=== PATIENT | male | born 1980 | race Caucasian/White ===

== ENCOUNTER 2017-11-16 15:39 | Emergency (ER) | payer BC ==
[2017-11-16] MEDS ORDERED: Lactated Ringers 1,000 ML IV ONE (16:22)
[2017-11-16] MEDS ORDERED: Prochlorperazine 10 MG/2 ML SDV IVPUSH ONE (16:23)
[2017-11-16] MEDS ORDERED: diphenhydrAMINE 50 MG/ML SDV IVPUSH ONE (16:23)
[2017-11-16] MEDS ORDERED: Ketorolac 30 MG/ML SDV IVPUSH ONE (16:23)
--- NOTE | 2017-11-16 16:29 | EDM.PDOC ---
ED HPI GENERAL MEDICAL PROBLEM - General Chief Complaint: General Stated Complaint: WEAKNESS Time Seen by Provider: 11/16/17 16:15 Source of Information: Reports: Patient, RN History Limitations: Reports: Other (no old records) - History of Present Illness INITIAL COMMENTS - FREE TEXT/NARRATIVE: 37 yo male was sitting at a desk at his work today and had onset of CAO, neck stiffness, and tingling down both arms. [place] like he might suddenly fall asleep. He says he was feeling fine before that. He ate lunch today and thinks he slept OK last night. Has had CAO's with neck stiffness and tingling down his arms in the past, but this was more abrupt and worse. His past medical history is remarkable for a parathyroid issue for which he is scheduled to travel to [place] for surgery. Says he if followed by a clinical training coordinator for this problem. Onset: Today Onset Date: 11/16/17 Onset Time: 14:30 Duration: Minutes: Location: Reports: Head, Neck, Chest, Upper Extremity, Left, Upper Extremity, Right Quality: Reports: Other (tingling in arms. Neck stiffness. 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: Other (see below) (none) - Related Data Allergies Allergy/AdvReac Type Severity Reaction Status Date / Time No Known Allergies Allergy Verified 11/16/17 16:02 Past Medical History Cardiovascular History: Reports: Other (See Below) Other Cardiovascular History: pericarditis 2014 Neurological History: Reports: Other (See Below) Other Neuro History: numbness in arms in past Endocrine/Metabolic History: Reports: Other (See Below) Other Endocrine/Metabolic History: planned parathyridectomy - Infectious Disease History Infectious Disease History: Reports: Chicken Pox Social & Family History - Tobacco Use Smoking Status *Q: Never Smoker - Caffeine Use Caffeine Use: Reports: Energy Drinks - Recreational Drug Use Recreational Drug Use: No ED ROS GENERAL - Review of Systems Review Of Systems: See Below Constitutional: Reports: No Symptoms HEENT: Reports: No Symptoms Respiratory: Reports: No Symptoms Cardiovascular: Reports: Chest Pain (low, left chest-now gone) Endocrine: Reports: No Symptoms GI/Abdominal: Reports: No Symptoms : Reports: No Symptoms Musculoskeletal: Reports: Neck Pain (stiffness) Skin: Reports: No Symptoms Neurological: Reports: Headache (mild, occipital), Tingling (both arms) Psychiatric: Reports: No Symptoms ED EXAM, GENERAL - Physical Exam Exam: See Below Exam Limited By: No Limitations General Appearance: Alert, WD/WN, No Apparent Distress Eye Exam: Bilateral Eye: EOMI, Normal Inspection, PERRL Ears: Normal External Exam, Normal Canal, Hearing Grossly Normal Ear Exam: Bilateral Ear: Auricle Normal, Canal Normal Nose: Normal Inspection, Normal Mucosa, No Blood Throat/Mouth: Normal Inspection, Normal Lips, Normal Oropharynx, Normal Voice, No Airway Compromise Head: Atraumatic, Normocephalic Neck: Normal Inspection, Supple Respiratory/Chest: No Respiratory Distress, Lungs Clear, Normal Breath Sounds, No Accessory Muscle Use Cardiovascular: Regular Rate, Rhythm, No Edema GI/Abdominal: Normal Bowel Sounds, Soft, Non-Tender, No Distention Back Exam: Normal Inspection. No: CVA Tenderness (R), CVA Tenderness (L) Extremities: Normal Inspection, Normal Range of Motion, Non-Tender Neurological: Alert, Oriented, CN II-XII Intact, Normal Cognition, No Motor/ Sensory Deficits Psychiatric: Normal Affect, Normal Mood Skin Exam: Warm, Dry, Intact, Normal Color, No Rash Lymphatic: No Adenopathy Course - Vital Signs Text/Narrative:: partial relief with tx. Last Recorded V/S: Last Vital Signs Temp 36.2 C 11/16/17 17:13 Pulse 91 11/16/17 17:13 Resp 15 11/16/17 17:13 BP 123/74 11/16/17 17:13 Pulse Ox 100 11/16/17 17:13 - Orders/Labs/Meds Labs: Laboratory Tests 11/16/17 11/16/17 11/16/17 Range/Units 16:28 16:28 16:28 Sodium 139 L (140-148) mmol/L Potassium 3.8 (3.6-5.2) mmol/L Chloride 103 (100-108) mmol/L Carbon Dioxide 29 (21-32) mmol/L Anion Gap 10.8 (5.0-14.0) mmol/L BUN 12 (7-18) mg/dL Creatinine 1.4 H (0.8-1.3) mg/dL Est Cr Clr Drug Dosing 83.18 mL/min Estimated GFR (MDRD) 57 L (>60) Glucose 96 (74-106) mg/dL Calcium 9.1 (8.5-10.1) mg/dL Total Bilirubin 0.5 (0.2-1.0) mg/dL AST 23 (15-37) U/L ALT 53 (12-78) U/L Alkaline Phosphatase 82 (46-116) U/L Troponin I < 0.017 (0.000-0.056) ng/mL Total Protein 7.5 (6.4-8.2) g/dL Albumin 4.1 (3.4-5.0) g/dL Globulin 3.4 (2.3-3.5) g/dL Albumin/Globulin Ratio 1.2 (1.2-2.2) TSH, Ultra Sensitive 1.990 (0.358-3.740) uIU/mL Meds: Medications Discontinued Medications Generic Name Dose Route Start Last Admin Trade Name Chanel PRN Reason Stop Dose Admin Diphenhydramine HCl 25 mg 11/16/17 16:23 11/16/17 16:46 Benadryl IVPUSH 11/16/17 16:24 25 mg ONETIME ONE Administration Lactated Ringer's 1,000 mls @ 1,000 mls/hr 11/16/17 16:22 11/16/17 16:49 Ringers, Lactated IV 11/16/17 17:21 1,000 mls/hr BOLUS ONE Administration Ketorolac Tromethamine 30 mg 11/16/17 16:23 11/16/17 16:47 Toradol IVPUSH 11/16/17 16:24 30 mg ONETIME ONE Administration Prochlorperazine Edisylate 10 mg 11/16/17 16:23 11/16/17 16:48 Compazine IVPUSH 11/16/17 16:24 10 mg ONETIME ONE Administration Departure - Departure Time of Disposition: 18:00 Disposition: Home, Self-Care 01 Condition: Fair Clinical Impression: Cervical radiculopathy due to degenerative joint disease of spine - Discharge Information Referrals: PCP,None [Primary Care Provider] - Forms: ED Department Discharge
== END 2017-11-16 18:36 | disposition home or self-care (01) ==
LOC: JP.ED 15:39
DX: M47.22 Other spondylosis with radiculopathy, cervical region (principal)
CPT/HCPCS: 36415; 80053; 84443; 84484; 96361; 96374; 96375; 99284; J0780; J1200; J1885; J7120

== ENCOUNTER 2017-12-07 07:58 | Day surgery (SDC) | payer BC ==
[2017-12-07] MEDS ORDERED: Lactated Ringers 1,000 ML IV SCH (08:00)
[2017-12-07] MEDS ORDERED: Midazolam 1 MG/ML 2 ML SDV ONE (09:00)
[2017-12-07] MEDS ORDERED: fentaNYL 100 MCG/2 ML SDV ONE (09:00)
[2017-12-07] MEDS ORDERED: Propofol 200 MG/20 ML SDV ONE ×2 (09:00→09:19)
--- NOTE | 2017-12-07 11:45 | OR ---
DATE OF PROCEDURE: 12/07/2017 PREOPERATIVE DIAGNOSES: 1. Dysphagia. 2. Bloating. 3. Blood in stool. POSTOPERATIVE DIAGNOSES: 1. Dysphagia. 2. Bloating. 3. Blood in stool. 4. Antral ulcers and gastritis. 5. Unremarkable colonoscopy. PROCEDURES: 1. Esophagogastroduodenoscopy with antral biopsies for CLOtest and for pathology to look for Helicobacter pylori. 2. Colonoscopy to the cecum. SURGEON: Yaya Alex MD. ANESTHESIA: IV anesthesia with monitored anesthesia care. INDICATION: This 37-year-old white male is referred for upper and lower endoscopy because of dysphagia, bloating, and blood in stool. I counseled him for the procedures including risks and alternatives, and he gave his informed consent to proceed. DESCRIPTION OF PROCEDURE: The patient was placed in the left lateral decubitus position. IV anesthesia was administered by the Anesthesia Service. Time-out was held. The flexible video Olympus upper endoscope was passed through his mouth, down the esophagus, and into his stomach. The scope was easily passed through the pylorus, into the duodenum reaching its third portion. The scope was then slowly withdrawn examining the mucosa throughout. The duodenal mucosa appeared unremarkable. The scope was brought up through the pylorus. There was some fairly intense punctate erythema about the antrum with a small antral ulcer seen. The scope was retroflexed. The proximal stomach appeared unremarkable. The scope was straightened. We obtained antral biopsies for CLOtest and for pathology to look for Helicobacter pylori. The scope was then brought up through the GE junction, which appeared unremarkable and through the unremarkable appearing esophagus and was removed. Next, a rectal exam was performed which was unremarkable. The flexible video Olympus colonoscope was introduced through his anus, up his rectum, out his colon all the way to the cecum. Once the cecum was reached, the scope was slowly withdrawn examining the mucosa throughout. No mucosal abnormalities were noted. The prep was good. The scope was retroflexed in the rectum with the distal rectum appearing unremarkable. The scope was straightened and removed. He tolerated the procedure well. Yaya Alex MD /[id number]
== END 2017-12-07 11:00 | disposition home or self-care (01) ==
LOC: JP.SDS 07:58
PROVIDERS: ATTEND Surgery
DX: K92.1 Melena (principal); K29.70 Gastritis, unspecified, without bleeding; K25.9 Gastric ulcer, unspecified as acute or chronic, without hemorrhage or perforation; R13.10 Dysphagia, unspecified
CPT/HCPCS: 43239; 45378; 87081; J2250; J2704; J3010; J7120

== ENCOUNTER 2018-06-10 05:39 | Day surgery (SDC) | payer SELFPAY ==
[~2018-06-10 05:39] MED LIST: Acetaminophen 500 MG Tab PO ONE; Celecoxib 200 MG Cap PO ONE
[2018-06-10] MEDS: Dextrose 5%-Lactated Ringers 1,000 ML IV SCH ×3 (06:34→20:39)
[2018-06-10] MEDS ORDERED: Bupivacaine 0.5%/EPINEPHrine 1:200,000 50 ML MDV ONE (06:47)
[2018-06-10] MEDS ORDERED: Rocuronium 50 MG/5 ML Vial ONE (07:11)
[2018-06-10] MEDS ORDERED: Glycopyrrolate 0.2 MG/ML 5 ML MDV ONE (07:11)
[2018-06-10] MEDS ORDERED: Neostigmine Methylsulfate 1 MG/ML 5 ML Syringe ONE (07:11)
[2018-06-10] MEDS ORDERED: Ondansetron 4 MG/2 ML SDV ONE (07:11)
[2018-06-10] MEDS ORDERED: Propofol 200 MG/20 ML SDV ONE (07:11)
[2018-06-10] MEDS ORDERED: Dexamethasone 4 MG/ML SDV ONE (07:11)
[2018-06-10] MEDS ORDERED: fentaNYL 250 MCG/5 ML SDV ONE ×2 (07:13→07:41)
[2018-06-10] MEDS ORDERED: Ketamine 500 MG/5 ML MDV IV SCH (07:30)
[2018-06-10] MEDS ORDERED: Ropivacaine 46 ML, Dexamethasone 8 MG, EPINEPHrine 0.4 MG, Sodium Chloride 0.9% 31.6 ML NERVRT SCH ×4 (07:30)
[2018-06-10] MEDS ORDERED: HYDROmorphone/Normal Saline 15 MG/30 ML PCA IV PRN (07:39)
[2018-06-10] MEDS ORDERED: Naloxone 0.4 MG/ML SDV IV PRN (07:41)
[2018-06-10] MEDS: cefOXitin 2 GM in Sodium Chloride 0.9% 50 ML IV ONE ×2 (07:44→09:50)
[2018-06-10] MEDS ORDERED: hydrOXYzine HCl 100 MG/2 ML SDV IM PRN (09:29)
[2018-06-10] MEDS ORDERED: hydrOXYzine HCl 25 MG Tab PO PRN (09:30)
[2018-06-10] MEDS ORDERED: Cyclobenzaprine 10 MG Tab PO PRN (09:30)
[2018-06-10] MEDS: HYDROmorphone 1 MG/ML Syringe IV PRN ×4 (09:51→22:45)
[2018-06-10] MEDS: Acetaminophen/HYDROcodone 325-5 MG Tab PO PRN (12:09)
[2018-06-10] MEDS: cefOXitin 2 GM in Sodium Chloride 0.9% 50 ML IV SCH ×2 (14:26→20:40)
[2018-06-10] MEDS ORDERED: Pantoprazole 40 MG Vial IV SCH (16:00)
[2018-06-10] MEDS: Ondansetron 4 MG/2 ML SDV IVPUSH PRN ×2 (17:33→22:46)
[2018-06-11] MEDS: Acetaminophen/HYDROcodone 325-5 MG Tab PO PRN (08:24)
[2018-06-11] MEDS ORDERED: Magnesium Hydroxide 400 MG/5 ML Susp 30 ML Cup PO PRN (11:17)
--- NOTE | 2018-06-12 02:48 | DISCH ---
ADMISSION DIAGNOSES: Biliary dyskinesia, chronic cholecystitis, hyperparathyroidism, degenerative disk disease, L4-L5 disk bulge and chronic bilateral low back pain with sciatica present. DISCHARGE DIAGNOSES: Diagnostic laparoscopy with cholecystectomy and repair of de- serialized area over duodenum for biliary dyskinesia. Sludge (with duodenum directly adherent to the gallbladder neck). Date of surgery 06/10/2018. Surgeon, Enrique Gillis MD. HISTORY: Michael Ballesteros is a full 38-year-old male with history of biliary dyskinesia. After preoperative evaluation and discussion of possible risks and possible complications, he wished to proceed with surgical procedure. HOSPITAL COURSE: Michael had a surgery on 06/10/2018. He had no operative complications on postoperative day 1. His pain was managed. Oral intake adequate. Vital signs stable and he was able to be discharged to home. PHYSICAL EXAMINATION: GENERAL: Michael Ballesteros is a 38-year-old male. VITAL SIGNS: Height is 6 feet 2 inches, weight is 197 pounds. TPR is 96.7, 74, 14, and blood pressure is 105/65. HEENT: Negative. NECK: Supple. HEART: Regular rate and rhythm. LUNGS: Clear. ABDOMEN: Dressings were removed. Sutures intact. Incisions look good. Abdominal binder has been on. EXTREMITIES: Without peripheral edema. DISPOSITION: Discharged to home. CONDITION: Stable and improving. FOLLOWUP: Followup appointment with Ragini Contreras PA-C, on 06/18/2018 at 10:00 a.m. HOME MEDICATIONS: 1. [place] 5/325 mg 1 to 2 tablets every 6 hours p.r.n. pain #40. 2. Milk of magnesia 30 mL, 2 doses were sent home with the patient to take 1 daily p.r.n. constipation. 3. Zofran ODT 4 mg every 6 hours p.r.n. nausea #30. 4. He is to resume his home medication of multivitamin daily. DISCHARGE DIET: Diet after discharge, usual diet as tolerated. Drink 8 to 10 glasses a day. ACTIVITY: No lifting greater than 10 pounds for 2 weeks. Driving, do not drive for 1 week and while taking pain medication. Shower/bathing, may shower. DISCHARGE INSTRUCTIONS: Notify provider if any fever, increased pain, nausea, or vomiting. Wound incision care, keep site clean and dry. Wear abdominal binder for 2 weeks and then as tolerated. SPECIAL INSTRUCTION: Use incentive spirometer 10 times every hour while awake.
--- NOTE | 2018-06-15 11:44 | OR ---
DATE OF PROCEDURE: 06/10/2018 PREOPERATIVE DIAGNOSIS: Biliary dyskinesia. POSTOPERATIVE DIAGNOSIS: Biliary dyskinesia associated with small stones and sludge in gallbladder and duodenum densely adherent to the neck of gallbladder. OPERATIVE PROCEDURES: Diagnostic laparoscopy with; 1. Cholecystectomy (50219). 2. Takedown of densely adherent duodenum from gallbladder neck with repair of area of deserosalization of duodenum (48592). ANESTHESIA: General. ASSISTANTS: Ragini Contreras PA-C, and AB Norman. INDICATION FOR PROCEDURE: This is a 38-year-old presenting with recurrent upper abdominal pain. A CCK-stimulated HIDA scan was obtained, which showed a below-normal ejection fraction with the CCK injection also reproducing the patient's symptoms. The plan is to proceed with a laparoscopic or, if necessary, open cholecystectomy. Potential risks of the procedure including bleeding, infection, injury to underlying viscera, possible migration of stones from the gallbladder into the common bile duct necessitating additional procedures for correction were all gone over and, lastly, the possibility of persistent symptoms to some extent were explained to the patient, and he wishes to proceed. DETAILS OF PROCEDURE: The patient was taken to the operating room and placed in a supine position. After general endotracheal anesthesia was induced, the abdomen was prepped and draped. Initially, a transverse epigastric incision was made and the peritoneal cavity entered under direct vision with an Optiview trocar and inflated to 15 mmHg pressure with CO2. Laparoscope was then reinserted and no underlying trocar insertion site injuries were seen. Following this, a 12 mm subumbilical trocar was placed along with a single 5-mm right abdominal trocar. The patient was noted at this point to have quite densely distended and somewhat snider-appearing gallbladder. Of note, over the gallbladder neck, there was an area of dense adherence between the duodenum and that portion of the gallbladder and adjacent cystohepatic triangle. As this was dissected down, it became evident that roughly a thumbprint area of duodenum was deserosalized. This however was not by any means a full- thickness impact to the duodenum. This area was then reinforced with 2 [id number] stitches of 3-0 Vicryl stitch and then fibrin sealant was applied over the area at the conclusion of the procedure as well. Most of the duodenal area was dissected free and re-serosalized. The gallbladder was retracted anteriorly and laterally. Dissection began further on the gallbladder neck and continued down the gallbladder neck-cystic duct junction. Once that was identified as well as the adjacent cystic artery, an incision was made to take the two structures as a unit with PRABHU stapler, as the duct itself was quite thickened and friable in appearance more than one would typically see with a biliary dyskinesia-type case. Anyway, once these were divided, one additional area of arterial branching in the area of the gallbladder neck, coming out of the liver, was noted, which was clipped 3 times proximally and divided with Harmonic scalpel. The gallbladder was then dissected off the gallbladder bed using Harmonic scalpel and delivered through the epigastric trocar site. Some tiny stones and sludge were then evacuated from the gallbladder as it was being retrieved through the epigastric trocar site. At that point, no further problems were noted. A single Lion-Purdy drain was then placed through the right lateral trocar site and placed into the area of gallbladder bed with no further problems noted. The fibrin sealant was placed over the duodenal closure site and some omentum then laid over that as well. The trocars were then sequentially removed. The fascia at the midline sites was closed with 0 Vicryl stitch and the skin with 4-0 Vicryl skin stitch. Dressing was applied. The patient was taken to the recovery room in a satisfactory condition. Enrique Gillis MD Job #: [id number]
== END 2018-06-11 13:28 | disposition home or self-care (01) ==
LOC: JP.SDS 05:39 → JP.MS 09:00 → JP.SDS 06-11 13:28
PROVIDERS: ATTEND Surgery
DX: K81.1 Chronic cholecystitis (principal); K82.8 Other specified diseases of gallbladder; E21.3 Hyperparathyroidism, unspecified; M51.36 Other intervertebral disc degeneration, lumbar region; Z79.899 Other long term (current) drug therapy
CPT/HCPCS: 36415; 44238; 47562; 82247; 84075; 85025; 88304; 93005; A9270; C9113; J0171; J0694; J1100; J1170; J2405; J2704; J2710; J2795; J3010; J3490; J7042; J7050; 93010